=== PATIENT | female | born 1985 | race Hispanic/Latino ===

== ENCOUNTER 2019-09-26 12:35 | Emergency (ER) | payer SELFPAY ==
[2019-09-26] MEDS ORDERED: PROMETHAZINE INJ 25 MG/ML AMP ONE (13:07)
[2019-09-26 13:36] LABS: Urine Blood 2+ (NEG); Urine Glucose NEGATIVE (NEG); Urine Protein 2+ (NEG); Urine Specific Gravity 1.025 (1.005-1.030)
[2019-09-26] MEDS ORDERED: NA CHLORIDE 0.9% 1,000 ML ONE (13:36)
[2019-09-26 13:44] LABS: Urine Bacteria >50 /HPF (<20)
[2019-09-26 13:45] LABS: Urine Culture Reflex Order NOT NEEDED; Urine Mucus 2+ /HPF (NONE SEEN)
--- NOTE | 2019-09-26 14:23 | EDPHYS ---
Physician Documentation [facility] Name: Cecilia Joy Age: 34 yrs Sex: Female : 1985 Arrival Date: 09/26/2019 Time: 12:39 Bed 20 Private MD: ED Physician Min Patel HPI: 09/25 14:28 This 34 yrs old Female presents to ER via Ambulatory with complaints of snw Nausea/Vomiting. 14:28 The patient presents to the emergency department with nausea, vomiting. Onset: The snw symptoms/episode began/occurred gradually, 1 month(s) ago, and became persistent. Possible causes: unknown. The symptoms are aggravated by cough in the past few days. Associated signs and symptoms: Pertinent positives: nausea, vomiting, cough. Severity of symptoms: At their worst the symptoms were mild moderate in the emergency department the symptoms are unchanged. It is unknown whether or not the patient has had similar symptoms in the past. The patient has not recently seen a physician. 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 - Social history:: Smoking status: Patient reports the use of cigarette tobacco products, denies chronic smoking, but will smoke occasionally. ROS: 14:28 Eyes: Negative for injury, pain, redness, and discharge, ENT: Negative for injury, snw pain, and discharge, Neck: Negative for injury, pain, and swelling, Cardiovascular: Negative for chest pain, palpitations, and edema. 14:28 Back: Negative for injury and pain, : Negative for injury, bleeding, discharge, and swelling, MS/Extremity: Negative for injury and deformity, Skin: Negative for injury, rash, and discoloration, Neuro: Negative for headache, weakness, numbness, tingling, and seizure. 14:28 Constitutional: Positive for body aches, malaise, poor PO intake. 14:28 Respiratory: Positive for cough, with no reported sputum. 14:28 Abdomen/GI: Positive for nausea and vomiting. 14:28 Psych: Positive for anxiety. Exam: 14:27 Head/Face: Normocephalic, atraumatic. Eyes: Pupils equal round and reactive to light, snw extra-ocular motions intact. Lids and lashes normal. Conjunctiva and sclera are non-icteric and not injected. Cornea within normal limits. Periorbital areas with no swelling, redness, or edema. ENT: Nares patent. No nasal discharge, no septal abnormalities noted. Tympanic membranes are normal and external auditory canals are clear. Oropharynx with no redness, swelling, or masses, exudates, or evidence of obstruction, uvula midline. Mucous membranes moist. Neck: Trachea midline, no thyromegaly or masses palpated, and no cervical lymphadenopathy. Supple, full range of motion without nuchal rigidity, or vertebral point tenderness. No Meningismus. Chest/axilla: Normal chest wall appearance and motion. Nontender with no deformity. No lesions are appreciated. Cardiovascular: Regular rate and rhythm with a normal S1 and S2. No gallops, murmurs, or rubs. Normal PMI, no JVD. No pulse deficits. 14:27 Abdomen/GI: Soft, non-tender, with normal bowel sounds. No distension or tympany. No guarding or rebound. No evidence of tenderness throughout. Back: No spinal tenderness. No costovertebral tenderness. Full range of motion. Skin: Warm, dry with normal turgor. Normal color with no rashes, no lesions, and no evidence of cellulitis. MS/ Extremity: Pulses equal, no cyanosis. Neurovascular intact. Full, normal range of motion. Neuro: Awake and alert, GCS 15, oriented to person, place, time, and situation. Cranial nerves II-XII grossly intact. Motor strength 5/5 in all extremities. Sensory grossly intact. Cerebellar exam normal. Normal gait. 14:27 Constitutional: The patient appears alert, awake, anxious. 14:27 Respiratory: the patient does not display signs of respiratory distress, Respirations: normal, Breath sounds: + upper airway congestion. 14:27 Psych: Behavior/mood is pleasant, anxious, Affect is animated. Vital Signs: 12:41 BP 131 / 97; Pulse 87; Resp 16 S; Temp 98.7(O); Pulse Ox 99% on R/A; Weight 74.84 kg aa5 (R); Height 5 ft. 0 in. (152.40 cm) (R); Pain 0/10; 14:46 BP 140 / 69; Pulse 72; Resp 17; Pulse Ox 99% on R/A; tw2 12:41 Body Mass Index 32.22 (74.84 kg, 152.40 cm) aa5 MDM: 12:48 Patient medically screened. rn 14:26 Data reviewed: vital signs, nurses notes. Data interpreted: Pulse oximetry: on room air snw is 99 %. Interpretation: normal. Counseling: I had a detailed discussion with the patient and/or guardian regarding: the historical points, exam findings, and any diagnostic results supporting the discharge/admit diagnosis, the presence of at least one elevated blood pressure reading (>120/80) during this emergency department visit, lab results, the need for outpatient follow up, to return to the emergency department if symptoms worsen or persist or if there are any questions or concerns that arise at home. Special discussion: I have referred the patient to see his PCP for further evaluation of high blood pressure. Based on the history and exam findings, there is no indication for further emergent testing or inpatient evaluation. I discussed with the patient/guardian the need to see the OB Gyne specialist for further evaluation of the symptoms. I discussed with the patient/guardian the need to see the primary care provider for further evaluation of the symptoms. 09/25 12:54 Order name: COVID-19 [facility] 09/25 12:54 Order name: Flu; Complete Time: 14:12 snw 09/25 12:54 Order name: Strep; Complete Time: 14:12 snw 09/25 12:54 Order name: Urine Culture snw 09/25 12:54 Order name: Urine Microscopic Only; Complete Time: 14:12 snw 09/25 13:29 Order name: Urine Dipstick--Ancillary (enter results); Complete Time: 14:12 eb 09/25 12:54 Order name: Document PUI#; Complete Time: 13:57 snw 09/25 12:54 Order name: Droplet/Contact Precautions; Complete Time: 13:57 snw 09/25 12:54 Order name: Labs collected and sent; Complete Time: 13:33 snw 09/25 13:29 Order name: Urine --Ancillary (enter results); Complete Time: 14:12 eb 09/25 13:53 Order name: Throat Culture [facility] 04/18 12:54 Order name: Notify [facility] [phone]/ ; Complete Time: 13:58 snw 09/25 12:54 Order name: O2 Per Protocol; Complete Time: 13:33 snw 09/25 12:54 Order name: Urine Test (obtain specimen); Complete Time: 13:32 snw 09/25 12:54 Order name: Urine Dipstick-Ancillary (obtain specimen); Complete Time: 13:33 snw Administered Medications: 13:13 Drug: Phenergan 25 mg Route: IM; Site: right deltoid; rb1 14:46 Follow up: Response: No adverse reaction; Nausea is decreased tw2 13:35 Drug: NS 0.9% 1000 ml Route: IV; Rate: 1 bolus; Site: right wrist; rb1 14:46 Follow up: Response: No adverse reaction; IV Status: Completed infusion; IV Intake: tw2 1000ml 14:45 Drug: Macrobid 100 mg {Note: via KRISTAL Pierre at this time..} Route: PO; tw2 14:46 Follow up: Response: No adverse reaction tw2 Disposition: 15:23 Co-signature as Attending Physician, Min Patel MD. rn Disposition: 09/26/19 14:22 Discharged to Home. Impression: state, Urinary tract infection, site not specified, Dehydration. - Condition is Stable. - Discharge Instructions: Dehydration, Adult, and Urinary Tract Infection, Hypertension During , Rehydration, Adult. - Prescriptions for Vitamin 27- 0.8 mg Oral Tablet - take 1 tablet by ORAL route once daily; 60 tablet. Macrobid 100 mg Oral Capsule - take 1 capsule by ORAL route every 12 hours for 10 days; 20 capsule. - Work release form, Medication Reconciliation Form, Thank You Letter, Antibiotic Education, Prescription Opioid Use form. - Follow up: Emergency Department; When: As needed; Reason: Worsening of condition. Follow up: Private Physician; When: 1 week; Reason: Recheck today's complaints, Continuance of care, Re-evaluation by your physician. Signatures: Dispatcher [employer] EDMS Gabby Camarillo, PLASTERER MAINTENANCE-C PLASTERER MAINTENANCE-Csnw Min Patel MD MD rn Calderon, Audri, RN RN aa5 Lilli Gomez RN RN rb1 Rivers, Antoinette, RN RN tw2 Corrections: (The following items were deleted from the chart) 14:51 14:22 09/26/2019 14:22 Discharged to Home. Impression: state; Urinary tract tw2 infection, site not specified; Dehydration. Condition is Stable. Forms are Medication Reconciliation Form, Thank You Letter, Antibiotic Education, Prescription Opioid Use. Follow up: Emergency Department; When: As needed; Reason: Worsening of condition. Follow up: Private Physician; When: 1 week; Reason: Recheck today's complaints, Continuance of care, Re-evaluation by your physician. snw
--- NOTE | 2019-09-26 14:23 | ER ---
Nurse's Notes [facility] Name: Cecilia Joy Age: 34 yrs Sex: Female : 1985 Arrival Date: 09/26/2019 Time: 12:39 Bed 20 Private MD: Diagnosis: state;Urinary tract infection, site not specified;Dehydration Presentation: 09/25 12:41 Chief complaint: Patient states: nausea/vomiting on and off x 2 weeks. Denies abd pain. aa5 Pt states "I am just so stressed out because of everything going on right now and I work at [employer] and I have 5 kids and I don't know if I am ". 12:41 Coronavirus screen: Surgical mask placed on patient. Patient moved to private room, aa5 placed in contact and droplet isolation with eye protection until further assessment. Patient reports a cough. Patient denies shortness of breath or difficulty breathing. Patient denies measured and/or subjective temperature greater than 100.4F prior to today's visit. Patient denies travel on a cruise ship or to a country the [facility] currently lists as an affected area. Patient denies contact with known and/or suspected case of COVID-19. Ebola Screen: Patient negative for fever greater than or equal to 101.5 degrees Fahrenheit, and additional compatible Ebola Virus Disease symptoms. Initial Sepsis Screen: Does the patient meet any 2 criteria? No. Patient's initial sepsis screen is negative. Does the patient have a suspected source of infection? No. Patient's initial sepsis screen is negative. Risk Assessment: Do you want to hurt yourself or someone else? Patient reports no desire to harm self or others. Onset of symptoms was September 2019. 12:41 Acuity: JACQUELYN 3 aa5 12:41 Method Of Arrival: Ambulatory aa5 INTAKE NURSE: 12:59 [facility] 07/2019 aa5 Historical: - Allergies: 12:59 PENICILLINS; aa5 12:59 Amoxicillin; aa5 - PMHx: 12:59 None; aa5 - PSHx: 12:59 Cholecystectomy; aa5 - Immunization history:: Flu vaccine is not up to date. - Social history:: Smoking status: Patient reports the use of cigarette tobacco products, denies chronic smoking, but will smoke occasionally. Screenin:55 Abuse screen: Denies threats or abuse. Nutritional screening: Has had N/V for 3 or more rb1 days. Tuberculosis screening: No symptoms or risk factors identified. Fall Risk None identified. Assessment: 12:55 General: Appears in no apparent distress. comfortable, Behavior is calm, cooperative, rb1 Reports fever for. Pain: Denies pain. Neuro: Level of Consciousness is awake, alert, obeys commands, Oriented to person, place, time, situation. Cardiovascular: Capillary refill < 3 seconds is brisk in bilateral fingers. Respiratory: Airway is patent Respiratory effort is even, unlabored, Respiratory pattern is regular, symmetrical. GI: Abdomen is non-distended, Reports diarrhea, nausea, vomiting, since x 2 weeks. : No signs and/or symptoms were reported regarding the genitourinary system. Derm: Skin is pink, warm \\T\\ dry. 13:40 Reassessment: Patient appears in no apparent distress at this time. No changes from rb1 previously documented assessment. 13:57 Reassessment: [facility] # [id number]. aa5 14:48 Reassessment: Patient appears in no apparent distress at this time. Patient and/or tw2 family updated on plan of care and expected duration. Pain level reassessed. Patient is alert, oriented x 3, equal unlabored respirations, skin warm/dry/pink. pt denies nauseousness at this time. Vital Signs: 12:41 BP 131 / 97; Pulse 87; Resp 16 S; Temp 98.7(O); Pulse Ox 99% on R/A; Weight 74.84 kg aa5 (R); Height 5 ft. 0 in. (152.40 cm) (R); Pain 0/10; 14:46 BP 140 / 69; Pulse 72; Resp 17; Pulse Ox 99% on R/A; tw2 12:41 Body Mass Index 32.22 (74.84 kg, 152.40 cm) aa5 ED Course: 12:39 Patient arrived in ED. ag5 12:41 Arm band placed on. aa5 12:42 Lilli Gomez, RN is Primary Nurse. rb1 12:48 Min Patel MD is Attending Physician. rn 12:48 Gabby Camarillo FNP-C is [facility]. snw 12:55 Triage completed. aa5 12:55 Patient has correct armband on for positive identification. Bed in low position. Call rb1 light in reach. Side rails up X 1. Pulse ox on. NIBP on. 13:30 Inserted saline lock: 20 gauge in right wrist, using aseptic technique. ,using aseptic rb1 technique. IV inserted by KRISTAL Pierre. 14:47 No provider procedures requiring assistance completed. IV discontinued, intact, tw2 bleeding controlled, No redness/swelling at site. Pressure dressing applied, by kristal pierre at this time. Administered Medications: 13:13 Drug: Phenergan 25 mg Route: IM; Site: right deltoid; rb1 14:46 Follow up: Response: No adverse reaction; Nausea is decreased tw2 13:35 Drug: NS 0.9% 1000 ml Route: IV; Rate: 1 bolus; Site: right wrist; rb1 14:46 Follow up: Response: No adverse reaction; IV Status: Completed infusion; IV Intake: tw2 1000ml 14:45 Drug: Macrobid 100 mg {Note: via KRISTAL Pierre at this time..} Route: PO; tw2 14:46 Follow up: Response: No adverse reaction tw2 Intake: 14:46 IV: 1000ml; Total: 1000ml. tw2 Outcome: 14:22 Discharge ordered by . snw 14:50 Discharged to home ambulatory. tw2 14:50 Condition: stable 14:50 Discharge instructions given to patient, Instructed on discharge instructions, follow up and referral plans. no drinking with medication, no driving heavy equipment, medication usage, Demonstrated understanding of instructions, follow-up care, medications, Prescriptions given X 2. 14:51 Patient left the ED. tw2 Addendum: 09/28/2019 18:20 Addendum: Other Attempted to call pt regarding negative COVID swab results, no answer, h b no voicemail set up. Signatures: Gabby Camarillo FNP-C COMPUTER NETWORK SPECIALIST-Csnw Min Patel MD MD rn Calderon, Audri RN RN aa5 Lilli Gomez, RN RN rb1 Nicole Pinto RN RN hb Wise, Tara, RN RN tw2 Jay uBndy ag5 Corrections: (The following items were deleted from the chart) 18:35 18:20 Addendum: Other Attempted to call pt regarding negative COVID swab results, no hb answer, no voicemail set up. hb
[2019-09-26] MEDS ORDERED: NITROFURAN MACRO 100 MG CAP PO ONE (14:45)
[2019-09-26 15:05] VITALS: TEMP 98.7; O2SAT 99
[2019-09-26 15:07] VITALS: BP 140/69
== END 2019-09-26 14:51 | disposition home or self-care (01) ==
LOC: ER 12:35
DX: O23.40 Unspecified infection of urinary tract in pregnancy, unspecified trimester (principal); O99.280 Endocrine, nutritional and metabolic diseases complicating pregnancy, unspecified trimester; E86.0 Dehydration; Z03.818 Encounter for observation for suspected exposure to other biological agents ruled out; Z3A.00 Weeks of gestation of pregnancy not specified
CPT/HCPCS: 81003; 81015; 81025; 87070; 87081; 87086; 87088; 87804; 96360; 96372; 99284; J2550; J7030; U0001